=== PATIENT | male | born 2000 | race Caucasian/White ===

== ENCOUNTER 2023-12-28 07:50 | Emergency (ER) | payer MEDICAID, SELFPAY ==
[2023-12-28 08:00] VITALS: BP 143/114; PULSE 74; RESP 18; TEMP 36.4; O2SAT 99; BMI 25.1
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
[2023-12-28 08:50] LABS: Lactate* 1.3 mmol/L (0.5-1.9)
[2023-12-28] MEDS: ONDANSETRON 2 MG/ML inj 4 MG IVP (08:57)
[2023-12-28] MEDS: HALOPERIDOL 5 MG/ML INJ 2.5 MG IV (08:57)
[2023-12-28] MEDS: diazePAM 5 MG/ML inj 10 MG IV ×3 (08:58→12:24)
[2023-12-28 09:02] LABS: Basophils Percent Auto 0.2 % (0.0-3.0); Hematocrit 48.3 % (37.0-53.0); Hemoglobin* 16.3 gm/dL (13.5-17.5); Immature Granulocytes Pct Auto 0.1 %; Lymphocytes Percent Auto 9.2 % (20-44); Mean Corpuscular HGB Conc 34 gm/dL (32-36); Mean Corpuscular Hemoglobin 29 pg (26-34); Mean Corpuscular Volume 84 fL (80-100); Monocytes Percent Auto 7.4 % (0.0-11.0); Neutrophils Percent Auto 83.1 % (42.0-72.0); Platelet Count* 330 K/uL (140-440); RDW Coefficient of Variation % 12.4 % (11.5-15.5); Red Blood Count 5.72 m/uL (4.30-5.90); White Blood Count* 13.37 K/uL (4.50-11.00)
[2023-12-28 09:06] LABS: Slide Review Reflex No
[2023-12-28 09:09] LABS: Chloride* 99 mmol/L (96-114); Potassium* 4.6 mmol/L (3.6-5.1); Sodium* 139 mmol/L (135-149)
[2023-12-28 09:11] LABS: Bilirubin Total* 1.2 mg/dL (0.1-1.5); Creatinine* 0.7 mg/dL (0.5-1.5); Estimated Glomerular Filt Rate 133 ml/min
[2023-12-28 09:12] LABS: Alanine Aminotransferase* 19 U/L (4-50); Alkaline Phosphatase* 58 U/L (40-150); Anion Gap 20 mEq/L (7-15); Aspartate Amino Transferase* 36 U/L (12-35); Blood Urea Nitrogen* 13 mg/dL (5-24); Carbon Dioxide* 20 mmol/L (20-32); Glucose* 116 mg/dL (60-115); Lipase* 49 U/L (23-300); Total Protein* 9.2 g/dL (6.0-8.3)
[2023-12-28 09:13] LABS: Calcium* 10.6 mg/dL (8.4-10.6)
[2023-12-28 09:15] VITALS: BP 135/80; PULSE 75; RESP 16; O2SAT 96
[2023-12-28] MEDS: LACTATED RINGERS 1000 ML IV (09:18)
[2023-12-28 09:49] LABS: Albumin* 6.4 g/dL (3.3-5.0)
[2023-12-28] MEDS: diphenhydrAMINE 50 MG/ML inj 25 MG IVP (10:10)
== END 2023-12-28 12:24 | disposition home or self-care (01) ==
PROVIDERS: Emergency Provider Emergency Medicine; PCP Family Medicine
DX: R11.15 Cyclical vomiting syndrome unrelated to migraine (principal); F41.9 Anxiety disorder, unspecified
CPT/HCPCS: 36415; 80053; 81001; 83605; 83690; 85025; 93005; 96374; 96375; 99284; J1200; J1630; J2405; J3360; J7120

== ENCOUNTER 2024-12-13 05:46 | Emergency (ER) | payer MEDICAID, SELFPAY ==
--- OUTSIDE RECORDS SUMMARY | 2024-12-13 05:49 | XMS_ITS | Encounter Summary ---
Author Organization [facility] Address [address], [place] [address] Care Team Providers Care News Analyst Name Role Phone Needs Pcp, Assignment Primary Care Provider Encounter Details Date Type Department Care Team (Latest Contact Info) Description 08/02/2014 Correspondence None No Primary/Referring, Phy OPTICAL PAW Social History Tobacco Use Types Packs/Day Years Used Date Smoking Tobacco: Never Smokeless Tobacco: Never Comments:smoke free home Alcohol Use Standard Drinks/Week Comments No 0 (1 standard drink = 0.6 oz pur e alcohol) Sex and Gender Information Value Date Recorded Sex Assigned at Not on file Legal Sex Male 7:12 AM CDT Gender Identity Not on file Sexual Orientation Not on file documented as of this encounter Plan of Treatment Not on file documented as of this encounter Visit Diagnoses Not on filedocumented in this encounter Care Teams News Analyst Relationship Specialty Start Date End Date Needs Pcp, [place] [address] PCP - General 03/21/22 documented as of this encounter
--- OUTSIDE RECORDS SUMMARY | 2024-12-13 05:49 | XMS_ITS | Encounter Summary ---
Author Organization [facility] Address [address], [place] [address] Care Team Providers Care Supervisor Residential Name Role Phone Needs Pcp, Assignment Primary Care Provider [phone] Encounter Details Date Type Department Care Team (Late st Contact Info) Description 04/24/2017 Emergency Room External to [facility] DECREASED SENSATION Social History Tobacco Use Types Packs/Day Years [...] on filedocumented in this encounter Care Teams Supervisor Residential Relationship Specialty Start Date End Date Needs Pcp, [place] [address] PCP - General 03/21/22 documented as of this encounter
--- OUTSIDE RECORDS SUMMARY | 2024-12-13 05:49 | XMS_ITS | Clinical Summary ---
Author Organization [facility] Address [address] [place] [address] Care Team Providers Care Letter Sorting Machine Operator Name Role Phone [facility], [facility] Primary Care Provider Allergies Active Allergy Reactions Criticality Noted Date Comments Polymyxin B Throat Swelling/Closing High 08/24/2020 Medications HYDROcodone-megha taminophen 2.5-108mg/5mL oral solution Take 5-10 mL by mouth every 6 hours if needed for Pain. Max acetaminophen dose: 4000mg in 24 hrs. 100 mL 0 4 Active cloNIDine HCL (CATAPRES) 0.3 mg tablet Take 0.3 mg by mouth. 4 Active propranoloL (INDERAL) 20 mg tablet Take 20 mg by mouth. Active ondansetron (ZOFRAN) 8 mg tabletIndicatio ns:Nausea and vomiting, unspecified vomiting type Take 1 Tablet (8 mg) by mouth every 8 hours if needed for Nausea/Vomiting. 30 Tablet 1 5 Active OLANzapine (ZYPREXA) 2.5 mg tablet Take 1 Tablet by mouth 6 times daily. 5 Active LORazepam 1 mg tablet Take 1 mg by mouth 3 times daily if needed. 4 Active Active Problems Problem Noted Date Diagnosed Date Depression, major, single episode, mild 08/20/19 25 MARGO (generalized anxiety disorder) 08/20/2024 Nausea and vomiting 08/20/2024 Immunizations Immunization Administration Dates Next Due DTaP 06/06/2005, 2,05/18/2001,03/11,01/01/2001 HIB-HepB (Comvax) 12/10/2001,03/11/2001,01/02/20 01 Human Papilloma Virus Vaccine 02/02/2015, 013,02/10/2013 Inactivated Polio Vaccine 06/06/2005,,03/11/2001,01/01 MENINGOCOCCAL VACCINE 2 VIAL [id number] (MENVEO) 02/12/2017 MMR 06/06/2005,12/10/2001 Meningococcal Vaccine (Menactra) 03/16/2012 Pneumococcal conj 7-Valent (Prevnar 7) 1 08/07/2004,11/04/2001,05/18/2001,03/11,01/01/2001 Tdap 03/16/2012 Varicella Vaccine 05/04/2007,12/10/2001 Family History Medical History Relation Name Comments Diabetes Maternal Grandfather Anxiety disorder Mother Relation Name Status Comments Father Alive Maternal Grandfather Mother Alive Sister Alive Social History Tobacco Use Types Packs/Day Years Used Date Smoking Tobacco: Never Smokeless Tobacco: Never Alcohol Use Standard Drinks/Week Comments Yes 0 (1 standard drink = 0.6 oz pur e alcohol) rare PHQ-2 Answer Date Recorded PHQ-2 TOTAL SCORE 2 08/20/2024 Sex and Gender Information Value Date Recorded Sex Assigned at Not on file Legal Sex Male 9:37 PM [employer] Gender Identity Not on file Sexual Orientation Not on file Obstetrics History Last Filed Vital Signs Vital Sign Reading Time Taken Comments Blood Pressure 130/76 08/20/2024 11:07 AM [employer] Pulse 77 08/20/2024 11:07 AM [employer] Temperature 36.7 C (98.1 F) 04/24/2017 12:01 PM CDT Respiratory Rate 18 04/24/2017 12:01 PM CDT Oxygen Saturation 97% 08/20/2024 11:07 AM [employer] Inhaled Oxygen Concentration - - Weight 86.6 kg (191 lb) 08/20/2024 11:07 AM [employer] Height 180 cm (5' 10.87) 08/20/2024 11:07 AM CS T Body Mass Index 26.74 08/20/2024 11:07 AM [employer] Plan of Treatment Health Maintenance Due Date Last Done Comments Tetanus booster 03/16/2022 03/16/2012 COVID-19 vaccine series ( season) 2024 06/15/2021, 11/17/2020, 10/24/2020 Influenza Vaccine (Season Ended) 2025 BMI (ht and wt on same day) for age 18+ 08/20/2025 08/20/2024 Depression screening for age 12+ 08/23/2025 08/23/2024, 08/20/2024 Hepatitis B series for 19+ Completed 12/10, 03/11/2001, 01/01/2001 Pneumococcal series for age 6-49 Aged Out 06/06/2005, 11/04/2001, 05/18/2001, Additional history exists No longer eligible based on patient's age to complete this topic Tdap Completed 03/16/2012 HPV series for age 9-26 Completed 02/03/20 15, 06/04/2013, 02/10/2013 HIV for age 15-65 Completed 08/20/2024 Hepatitis C screening for age 18-79 Completed 08/20/2024 Procedures Procedure Name Priority Date/Time Associated Diagnosis Comments SCAN-COLONOSCOPY 09/22/2024 1:00 PM CDT ANTI HIV 1/2 Routine 08/20/2024 11:36 AM [employer] Screening for HIV (human immunodeficiency virus) ANTI HCV Routine 08/20/2024 11:36 AM [employer] Need for hepatitis C screening test from Last 3 Months or Most Recently Relevant to Health Maintenance Results * SCAN-COLONOSCOPY (09/22/2024 1:00 PM CDT) Narrative Procedure Note Jose, Stephen Anders MD - 09/22/2024 12:08 PM CDT [facility] [address] [address] [facility] [facility], [address], [place] [address] Patient Name: Austin Goodman Gender: Male Exam Date: 09/22/2024 Visit Number: [id number] Age: 23 Years Date of : 2000 Attending MD: Stephen Garcia MD Medical Record#: [id number] Procedure: Colonoscopy Indications: Abnormal imaging Abdominal pain Referring MD: Referral Self Primary MD: Nayana Dixon PAC Medications: Admitting Medications: 0.9% Normal Saline at TKO Intra Procedure Medications: Patient received monitored anesthesia care. Complications: No immediate complications Procedure: An examination of the heart and lungs was performed and found to be withinacceptable limits. . The patient was therefore deemed a reasonablecandidate for endoscopy and sedation. The risks and benefits of the procedure were explained to thepatient.After obtaining informed consent, the patient received monitoredanesthesia care and I passed the scope without difficulty via the rectum to the ileum. The appendiceal orificeand ic valve were identified. The scope was retroflexed during theexamination The quality of the prep was excellent (Miralax/Gatorade/2tablets Bisacodyl/Magnesium Citrate). This was a complete examination throughout the entire colon. Findings: Normal finding. Location - ileum. Mild patchy erythema in the rectosigmoid. Suspect prep artifact.However given CT findings of possible colitis and symptoms, I biopsiedrectosigmoid colon with cold forceps for histology. Remainder of the exam is normal. Comments: Retroflexion in the right colon was performed. Impression: Lower abdominal pain impression comments: No definite findings to correlate with imaging.Did not appear like IBD. Preliminary Plan: Repeat colonoscopy at age 45 Pathology Results: A: COLON, SIGMOID AND RECTUM, BIOPSY: 1. Colonic mucosa with nonspecific regenerative change (seecomment) 2. Negative for chronic colitis COMMENTS A. These findings are nonspecific and could reflect a resolving infectiousor ischemic colitis, mild NSAID injury, or potentially a reaction to bowelpreparation. MICROSCOPIC A: Performed Electronically signed by: Finesse Wong MD Interpreted at [facility], [address] [place] [phone] Orders Instruction(s)/Education: Instruction/Education Timeframe Assessment Colon Cancer Prevention R10.30 Additional Comments: Dear Austin, the biopsies I took from your colon show regenerativechanges. This probably from the bowel prep solution. This will go backto normal in a few days. No need for further testing or treatment forthis. _Electronically signed by: Stephen Garcia MD 09/22/2024 cc: Nayana Dixon PAC Stephen Garcia MD OTHER Final Re sult * ANTI HCV (08/20/2024 11:36 AM ASSEMBL[employer]) HEPATITIS C ANTIBODY NON-REACTI VE NON-REACT MARIA ELENA [facility] Comment: HCV antibody was non-reactive. There is no laboratory evidence of HCV infection. In most cases, no further action is required. However, if recent HCV exposure is suspected, a test for HCV RNA (test code 24533) is suggested. For additional information please refer to http://CMP.LY.eCareDiary/faq/MDO63d5 (This link is being provided for informational/ educational purposes only.) Blood BLOOD SPECIMEN / Unknown 08/20/2024 11:36 AM [employer] 08/20/2024 11:37 AM ASSEMBLER [employer] Nayana MCFARLAND SEND OUTS Final Result [facility] [address] [place] [address], [facility] [address] [place] [address] * ANTI HIV 1/2 [25751.0] (08/20/2024 11:36 AM ASSEMBLER [employer]) Pathologist [facility] HIV AG/AB, 4TH GEN NON-REACT MARIA ELENA NON-REACT MARIA ELENA [facility] Comment: HIV-1 antigen and HIV-1/HIV-2 antibodies were not detected. There is no laboratory evidence of HIV infection. PLEASE NOTE: This information has been disclosed to you from records whose confidentiality may be protected by state law. If your state requires such protection, then the state law prohibits you from making any further disclosure of the information without the specific written consent of the person to whom it pertains, or as otherwise permitted by law. A general authorization for the release of medical or other information is NOT sufficient for this purpose. For additional information please refer to http://education.eCareDiary/faq/CSE307 (This link is being provided for informational/ educational purposes only.) The performance of this assay has not been clinically validated in patients less than 2 years old. Blood BLOOD SPECIMEN / Unknown 08/20/2024 11:36 AM [employer] 08/20/2024 11:37 AM [employer] Nayana MCFARLAND SEND OUTS Final Result [facility] [address] [place] [address], [facility] [address] [place] [address] from Last 3 Months or Most Recently Relevant to Health Maintenance Insurance [id number] [id number] [facility] Care Teams Letter Sorting Machine Operator Relationship Specialty Start Date End Date Clinic, [facility] [id number] [place] [address] PCP - General 10/30/16
--- OUTSIDE RECORDS SUMMARY | 2024-12-13 05:49 | XMS_ITS | Encounter Summary ---
Author Organization [facility] Address [address], [place] [address] Care Team Providers Care Dye Operator Name Role Phone Needs Pcp, Assignment Primary Care Provider Encounter Details Date Type Department Care Team (Late st Contact Info) Description 10/30/2016 Emergency Room External to [facility] Social History Tobacco Use Types Packs/Day Years [...] on filedocumented in this encounter Care Teams Dye Operator Relationship Specialty Start Date End Date Needs Pcp, [place] [address] PCP - General 03/21/22 documented as of this encounter
--- OUTSIDE RECORDS SUMMARY | 2024-12-13 05:49 | XMS_ITS | Clinical Summary ---
Author Organization [facility] Address [address] [place] [address] Care Team Providers Care Safety Engineer Pressure Vessels Name Role Phone Jose Fragoso MD Primary Care Provider [phone] Allergies Active Allergy Reactions Criticality Noted Date Comments Polymyxin B Swelling Low 08/24/2020 Medications LORazepam (ATIVAN) 0.5 MG tablet Take 0.5 mg by mouth 2 times daily Active metoclopramide (REGLAN) 10 MG tablet Take 1 tablet (10 mg) by mouth 4 times daily as needed (nausea or vomiting) 15 tablet 03/15/2021 Active benzonatate (TESSALON) 100 MG capsule Take 1 capsule (100 mg) by mouth 3 times daily as needed for cough 10 capsule 06/26/2021 Active hyoscyamine (LEVSIN) 0.125 MG tablet Take 1 tablet (125 mcg) by mouth every 4 hours as needed for cramping 10 tablet 06/26/2021 Active prochlorperazin e (COMPAZINE) 10 MG tablet Take 1 tablet (10 mg) by mouth every 6 hours as needed for nausea or vomiting 20 tablet 01/03/2022 Active ondansetron (ZOFRAN ODT) 4 MG ODT tab Take 1 tablet (4 mg) by mouth every 8 hours as needed for nausea 10 tablet 06/15/2023 Active OLANZapine zydis (ZYPREXA) 5 MG ODT Take 1 tablet (5 mg) by mouth every 8 hours as needed for other (anxiety or severe nausea) 5 tablet 12/26/2023 Active Active Problems Problem Noted Date Diagnosed Date Generalized anxiety disorder 12/26/2023 Cannabis dependence, continuous 12/26/2023 Panic disorder 07/08/2023 Major depression, single episode 07/08/2023 Cannabis-related disorder 07/08/2023 Mental health disorder 04/10/2019 Dehydration in pediatric patient 08/14/2018 Gastroesophageal reflux disease 04/28/2017 Hyperopia 02/01/2009 Overview (12/26/2023): High hyperopia Refractive amblyopia 02/01/2009 Overview (12/26/2023): Refractive Amblyopia OS 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 Overview (12/26/2023): Accomodative Esotropia Social History Tobacco Use Types Packs/Day Years Used Date Smoking Tobacco: Never Smokeless Tobacco: Never Alcohol Use Standard Drinks/Week Comments No 0 (1 standard drink = 0.6 oz pur e alcohol) AUDIT-C Answer Date Recorded Frequency of Alcohol Consumption Never 08/14/2018 Average Number of Drinks Not on file 019 Frequency of Binge Drinking Not on file 07/31 Adolescent Education Answer Date Record ed Getting School Help Needed Not on file 04/15 Sex and Gender Information Value Date Recorded Sex Assigned at Not on file Legal Sex Male 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 Gender Identity Not on file Sexual Orientation Not on file Last Filed Vital Signs Vital Sign Reading Time Taken Comments Blood Pressure 127/76 12/26/2023 6:30 PM CDT Pulse 98 12/26/2023 6:55 PM CDT Temperature 36.1 C (97 F) 12/26/2023 3:49 PM CDT Respiratory Rate 18 12/26/2023 3:49 PM CDT Oxygen Saturation 100% 12/26/2023 6:55 PM CDT Inhaled Oxygen Concentration - - Weight 82.1 kg (181 lb) 12/26/2023 3:49 PM CDT Height 177.8 cm (5' 10) 12/26/2023 3:49 PM CDT Body Mass Index 25.97 12/26/2023 3:49 PM CDT Plan of Treatment Health Maintenance Due Date Last Done Comments ADVANCE CARE PLANNING 2000 ANNUAL REVIEW OF HM ORDERS 2000 DEPRESSION ACTION PLAN 2000 PHQ-9 2000 YEARLY PREVENTIVE VISIT 02/10/2014 02/11/20 13, 07/11/2009, 05/04/2007, Additional history exists HIV SCREENING 11/11/2015 HEPATITIS C SCREENING 2018 DTAP/TDAP/TD VACCINE (7 - Td or Tdap) 03/16/2022 03/16/2012, 06/06/2005, 03/02/2002, Additional history exists COVID-19 VACCINE ( season) 2024 INFLUENZA VACCINE (Season Ended) 2025 04/08/2016, 04/13/2015, 03/16/2012, Additional history exists ZOSTER VACCINE (1 of 2) 2050 HEPATITIS B VACCINE Completed 12/10/2001, 03/11/2001, 01/01/2001 PNEUMOCOCCAL VACCINE: PEDIATRICS (0 to 5 YEARS) AND AT-RISK PATIENTS (6 to 49 YEARS) Aged Out 06/06/2005, 11/04/2001, 05/18/2001, Additional history exists No longer eligible based on patient's age to complete this topic HPV VACCINE Completed 02/02/2015, 11/2012, 02/10/2013 MENINGITIS VACCINE Completed 02/12/2017, 03/16/2012 MENINGITIS B VACCINE Aged Out No long er eligible based on patient's age to complete this topic [id number] [place] [id number] [facility] none (Work) [id number] Advance Directives For more information, please contact: [phone] * Full Code (Latest Code Status on File) Date Activated Date Inactivated Comments 04/10/2019 2:53 PM 04/11/2019 7:15 PM Question Answer Comments Code status determined by: Discussion with savannah nt/legal decision maker Care Teams Safety Engineer Pressure Vessels Relationship Specialty Start Date End Date Jose Fragoso MD [facility] [address] [place] [address] PCP - General Family Medicine 08/26/20
--- OUTSIDE RECORDS SUMMARY | 2024-12-13 05:49 | XMS_ITS | Clinical Summary ---
Author Organization [facility] Address [address] [place] [address] Care Team Providers Care Student Services Dean Name Role Phone Needs Pcp, Assignment Primary Care Provider [phone] Source Comments You are receiving this document as you are listed as the primary care provider,follow-up provider, or the patient has been referred to you for consultation.This is in compliance with the Medicare and[facility] EHR Incentive Program,which states Providers who transition their patient to another setting of careor provider of care or refers their patient to another provider of care shouldprovide summary care record for each transition of care or referral. [facility] Allergies Active Allergy Reactions Criticality Noted Date Comments Polymyxin B Swelling Low 08/24/2020 Medications raNITIdine (ZANTAC) 150 MG tabletIndications: Chronic cough,Gastroesopha geal reflux disease, esophagitis presence not specified Take 1 Tab by mouth two times a day. 60 Tab 1 04/28/20 17 Active loratadine (CLARITIN) 10 MG tablet TAKE ONE TABLET BY MOUTH EVERY DAY 90 Tab 3 12/10/19 18 Active Additional Information Patient not taking.Reported on 11/02/2023 omeprazole (PRILOSEC) 20 MG capsuleIndications :Nausea and vomiting, intractability of vomiting not specified, unspecified vomiting type Take 1 Capsule by mouth daily. Take 1 hour before a meal. 30 Capsule 08/13/19 19 Active propranolol (INDERAL) 20 MG tablet Take 1 Tablet (20 mg) by mouth every morning. 10/07/19 24 Active cloNIDine (CATAPRES) 0.3 MG tablet Take 1 Tablet (0.3 mg) by mouth daily at bedtime. 10/09/19 24 Active ondansetron (ZOFRAN-ODT) 4 MG disintegrating tablet Take 1 Tablet (4 mg) by mouth. 06/15/20 23 Active LORazepam (ATIVAN) 1 MG tablet Take 1 Tablet (1 mg) by mouth three times a day as needed. 12/28/19 24 Active venlafaxine (EFFEXOR) 75 MG tablet Take 1 Tablet (75 mg) by mouth three times a day. 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 07 008 Overview (02/19/2017): Strabismic Amblyopia OS Immunizations Immunization Administration Dates Next Due 4vHPV (Gardasil) 02/02/2015,06/04/2013, 3 DTaP 06/06/2005, 2,05/18/2001,2000,01/01/2001 Flu Vac (3+ yrs) 06/15/2007,05/04/2007 H1n1 Laiv Medimmune 2-49 Yr (Intranasal) 07/11/2009,05/24/2009 Hib/HBV 12/10/2001,03/11/2001,01/01/2001 IPV (Polio) 06/06/2005, 1,03/11/2001,2000 Influenza IIV4 (Quadrivalent ) 0.5mL (16099) 04/08/2016 Influenza LAIV (Nasal, 2-49 yrs) 04/13/2015 Influenza LAIV3 2-49 years (Flumist) 03/16/2012 Influenza Vaccine, Nasal ([facility]) 04/11/2009 MCV4 (Menactra) 03/16/2012 MCV4 Menveo 2m.+ (two vial) 02/12/2017 MMR 06/06/2005,12/10/2001 Pneumococcal 7, PED 06/06/2005, 2,05/18/2001,2000,01/01/2001 Tdap 03/16/2012 Varicella 05/04/2007,12/10/2001 Family History Medical History Relation Name Comments Coronary Artery Disease Maternal Grandfather Hyperlipidemia Maternal Grandfather Hypertension Maternal Grandfather Liver Disease Maternal Grandfather Cerebrovascular Disease Paternal Grandfather Hypertension Paternal Grandmother Cataract Negative Family History Glaucoma Negative Family History Macular Degeneration Negative Family History Retinal Detachment Negative Family History Relation Name Status Comments Father Alive Mother Alive Maternal Grandfather Alive Maternal Grandmother Alive Paternal Grandfather Alive Paternal Grandmother Alive Sister Alive Social History Tobacco Use Types Packs/Day Years Used Date Smoking Tobacco: Never Smokeless Tobacco: Never Comments:smoke free home Alcohol Use Standard Drinks/Week Comments Never 0 (1 standard drink = 0.6 oz pur e alcohol) AUDIT-C Answer Date Recorded Frequency of Alcohol Consumption Never 10/24/2018 Average Number of Drinks Not on file 019 Frequency of Binge Drinking Not on file 09/29 Sex and Gender Information Value Date Recorded Sex Assigned at Not on file Legal Sex Male 7:12 AM CDT Gender Identity Not on file Sexual Orientation Not on file Last Filed Vital Signs Vital Sign Reading Time Taken Comments Blood Pressure 130/92 12/31/2023 5:42 PM CDT Pulse 113 12/31/2023 6:13 PM CDT Temperature 37.6 C (99.6 F) 12/31/2023 5:42 PM CDT Respiratory Rate 12 12/31/2023 5:42 PM CDT Oxygen Saturation 96% 12/31/2023 5:42 PM CDT Inhaled Oxygen Concentration - - Weight 88.6 kg (195 lb 6.4 oz) 09/01/2018 12:58 PM DRIER TAKE OFF TENDER Height 179.1 cm (5' 10.5) 09/01/2018 12:[address] Body Mass Index 27.64 09/01/2018 12:58 PM DRIER TAKE OFF TENDER Plan of Treatment Health Maintenance Due Date Last Done Comments Hep C Screening (Preventive Services) 2000 HIV Screening (Preventive Services) 2016 Adult Preventive Visit 2018 8, 02/12/2017, 02/02/2015, Additional history exists DTaP/Tdap/Td Vaccine (7 - Tdap) 03/16/2022 03/16/2012, 06/06/2005, 03/02/2002, Additional history exists COVID-19 Vaccine ( season) 2024 06/15/2021, 11/17/2020, 10/24/2020 Influenza Vaccine (Season Ended) 2025 04/08/2016, 04/13/2015, 03/16/2012, Additional history exists Zoster/Shingles Vaccine (1 of 2) 2050 HepB Vaccine Completed 12/10/2001, 02/28, 01/01/2001 Hib Vaccine Completed 12/10/2001, 02/28, 01/01/2001 IPV (Polio) Vaccine Completed 06/06/2005, 05/18/2001, 03/11/2001, Additional history exists Pneumococcal Vaccine Aged Out 06/06/2005, 11/04/2001, 05/18/2001, Additional history exists No longer eligible based on patient's age to complete this topic Varicella Vaccine Completed 05/04/2007, 12/10/2001 HPV Vaccine Completed 02/02/2015, 12/0 11/2012, 02/10/2013 MCV4 Vaccine Completed 02/12/2017, 03/16/2012 HepA Vaccine Aged Out No longer eligi ble based on patient's age to complete this topic Meningococcal B Vaccine Aged Out No l onger eligible based on patient's age to complete this topic Insurance CARE PMAP CARE PMAP Care Teams Student Services Dean Relationship Specialty Start Date End Date Needs Pcp, [place] [address] PCP - General 03/21/22
--- OUTSIDE RECORDS SUMMARY | 2024-12-13 05:49 | XMS_ITS | Encounter Summary ---
[facility] Address [address] [place] [address] Care Team Providers Care Family Preservation Officer Name Role Phone Needs Pcp, Assignment Primary Care Provider Encounter Details Date Type Department Care Team (Late st Contact Info) Description 2000 Office Visit [facility] [address] [place] [address] Andres Jaquez MD [address] [place] [id number] Social History Tobacco Use Types Packs/Day Years Used Date Smoking Tobacco: Never Assessed Sex and Gender Information Value Date Recorded Sex Assigned at Not on file Legal Sex Male 7:12 AM CDT Gender Identity Not on file Sexual Orientation Not on file documented as of this encounter Progress Notes * Andres Jaquez - 2000 12:00 AM CDTS: A 3-week-old infant has been fussy and had projectile vomiting last night. He has been breast feeding well, bowel movements have been normal. They are somewhat loose. He started yesterday morning vomiting a whole feeding and again yesterday evening with the whole feeding. Both of these were in a projectile manner. Otherwise, more than half of his feedings have stayed down. He has had a rash in the diaper area. O: Healthy appearing , no evidence of weight loss. Exam of head and neck, heart, lungs, abdomen are entirely unremarkable. Skin clear. A: Possible viral illness with vomiting, doubt early pyloric stenosis. P: Described symptoms to watch for for possible early pyloric stenosis which would include progressive projectile vomiting and vomiting after each feeding. This does not seem to be the case thus far and the possibility is unlikely. Reassured, observe and recheck p.r.n. if not symptoms not resolved in several days. IN SUMMARY: Possible viral illness. documented in this encounter Plan of Treatment Not on file documented as of this encounter Visit Diagnoses Not on filedocumented in this encounter Care Teams Family Preservation Officer Relationship Specialty Start Date End Date Needs Pcp, [place] [address] PCP - General 03/21/22 documented as of this encounter
--- OUTSIDE RECORDS SUMMARY | 2024-12-13 05:50 | XMS_ITS | Encounter Summary ---
[facility] Organization [facility] Address [address] [place] [address] Care Team Providers Care Obstetrics Gynecology Physician Name Role Phone Needs Pcp, Assignment Primary Care Provider [phone] Encounter Details Date Type Department Care Team (Late st Contact Info) Description 01/01/2001 Office Visit [facility] [address] [place], [place] [id number] Bc Lassiter MD [facility] [address] [place], [place] [phone] Social History Tobacco Use Types Packs/Day Years Used Date Smoking Tobacco: Never Assessed Sex and Gender Information Value Date Recorded Sex Assigned at Not on file Legal Sex Male 7:12 AM CDT Gender Identity Not on file Sexual Orientation Not on file documented as of this encounter Progress Notes * Bc Lassiter - 01/01/2001 12:00 AM CDTS: Physical. Austin is doing fairly well. He feeds about two hours during the day. He's quite efficient. He eats fast. He goes maybe as long as the three hours to four hours at night. He does spit up. He gags. He `s hard to burp. Stools are once a day. Rather large, loose. No other special concerns or complaints. Passes his PDQ. O: Height: 22 , 57.8 circulation motion sensation., 50th percentile. Weight: 11 pounds 12 ounces, 50th percentile. OFC: 39 cms.,75th percentile. HEENT: normal . Eyes: straight. Neck: normal. Chest: clear. Heart: no murmur. Abdomen: normal. Genitalia: normal. Extremities: normal. Skin: normal. Neurologic: normal. A: Normal physical. P: Gets a DtaP, IPV, HIB, HEB, pneumococcal vaccine.Come back at four months of age or prn. IN SUMMARY: NORMAL PHYSICAL. cc: documented in this encounter Plan of Treatment Not on file documented as of this encounter Visit Diagnoses Not on filedocumented in this encounter Care Teams Obstetrics Gynecology Physician Relationship Specialty Start Date End Date Needs Pcp, [place] [address] PCP - General 03/21/22 documented as of this encounter
--- OUTSIDE RECORDS SUMMARY | 2024-12-13 05:50 | XMS_ITS | Encounter Summary ---
Author Organization [facility] Address [address] [place] [address] Care Team Providers Care Test Grader Name Role Phone Needs Pcp, Assignment Primary Care Provider [phone] Encounter Details Date Type Department Care Team (Late st Contact Info) Description 04/10/2019 Outside Hospital External to [facility] HISTORY AND PHYSICAL Social History Tobacco Use Types Packs/Day Years [...] on filedocumented in this encounter Care Teams Test Grader Relationship Specialty Start Date [place] [address] PCP - General 03/21/22 documented as of this encounter
[2024-12-13 06:03] VITALS: BP 143/87; PULSE 69; RESP 16; TEMP 37.1; O2SAT 97; BMI 25.1
--- NOTE | 2024-12-13 06:12 | ED.ANXIETY ---
HPI - Anxiety General Time Seen by Provider: 06:12 Date Seen: 12/13/24 Chief Complaint: Anxiety Stated Complaint: Panic attacks 12/11/24 and vomiting Time Seen by Provider: 12/13/24 06:12 Source: patient Mode of arrival: ambulatory Limitations: no limitations History of Present Illness HPI narrative: 24-year-old male who comes in today with abdominal pain and anxiety. Reports acute anxiety this started on Friday, took Xanax with minimal improvement. Has been vomiting over the last 2 days as well. Denies chest pain, diarrhea, abdominal pain. Does have a history of anxiety. No diarrhea, reports left-sided abdominal pain. No fevers, chills, urinary symptoms. Reports cramping of his entire body. Related Data Home Medications ?Medication ?Instructions ?Recorded ?Confirmed clonidine HCl 0.2 mg tablet 0.2 mg PO QPM 12/28/23 12/13/24 Held on 12/13/24. Instructions: insurance reason venlafaxine 37.5 mg 37.5 mg PO DAILY 12/28/23 12/13/24 capsule,extended release 24 hr alprazolam 1 mg tablet mg PO 12/13/24 Previous Rx's ?Medication ?Instructions ?Recorded omeprazole 20 mg capsule,delayed 20 mg PO QDAY #90 caps 01/27/22 release lorazepam 0.5 mg tablet 0.5 mg PO TID PRN anxiety #30 tabs 05/31/22 Held on 12/13/24. Instructions: insurance reason propranolol 60 mg capsule,24 60 mg PO QHS #30 caps 05/31/22 hr,extended release lorazepam 1 mg tablet 1 mg PO TID PRN #14 tabs 12/28/23 ondansetron HCl 4 mg tablet 4 mg PO Q8H #14 tabs 12/28/23 Allergies Allergy/AdvReac Type Severity Reaction Status Date / Time polymyxin B AdvReac Mild Verified 12/28/23 09:31 [facility] Medical History (Updated 12/13/24 @ 07:20 by Tonny Zhang MD) Anxiety ?F41.9 - Anxiety disorder, unspecified (ICD-10) Social History Smoking Status: Never smoker Do you use any of these nicotine containing products: None How often do you have a drink containing alcohol: never AUDIT-C Alcohol total score: 0 Non-prescribed substance use: marijuana (any form) Exam Narrative: Exam Narrative: General: Well-developed and well-nourished, no acute distress Head: Atraumatic and normocephalic Eyes: Pupils are equal reactive, extraocular motions intact, conjunctiva clear ENT: External nose and ears are normal, posterior pharynx without erythema or exudate Neck: No midline cervical tenderness, full spontaneous range of motion the neck, trachea midline, no adenopathy Heart: Regular rate and rhythm no murmurs or thrills Lungs: Clear to auscultation bilaterally without wheezes or crackles Abdomen: Soft, mild diffuse tenderness, nondistended with active bowel sounds Musculoskeletal: No tenderness, deformity, or edema Neurologic: Awake, alert, and oriented x3, no gross focal neurologic deficits, cranial nerves intact as tested Psych: Mood and affect are appropriate Skin: No rashes Const: Vital Signs, click to edit/add: Vital Signs - 24 hr 12/13/24 06:03 Temperature 98.8 F Pulse Rate [Pulse Oximeter] 69 Respiratory Rate 16 Blood Pressure [Ri ght Upper Arm] 143/87 H Pulse Oximetry 97 Oxygen Delivery Me thod Room Air Course Course ED Course: Reviewed prior GI note from July 2024 when patient was seen with abdominal pain and nausea vomiting. Patient presents today with generalized abdominal pain, vomiting, and panic attack 2 days ago. Says he gets similar symptoms to this when he gets anxiety, attributes current episode to starting after he ate fast food today's in row. Denies chest pain, shortness of breath, urinary symptoms, diarrhea. On exam here patient's slightly stable, awake alert, somewhat tremulous. Mild diffuse abdominal tenderness. Labs, fluids, Benadryl and Compazine are ordered. Reevaluation(s) Time of Reevaluation #1: 07:21 Reevaluation #1: Labs independently interpreted by me with normal CBC, mild anion gap stenosis which likely is related dehydration, normal patent panel in normal lipase. Patient is still complaining of abdominal pain alone nausea is improved. Review of chart shows patient has received droperidol with good results in the past and this will be ordered. Anticipate sign out to oncoming provider and likely discharge. Vital Signs Vital signs: Initial Vital Signs Temperature 98.8 F 12/13/24 06:03 Temperature Source Temporal Artery Scan 12/13/24 06:03 Pulse Rate 69 12/13/24 06:03 Respiratory Rate 16 12/13/24 06:03 Blood Pressure 143/87 H 12/13/24 06:03 Blood Pressure Mean 105 12/13/24 06:03 Blood Pressure Position Semi-Fowlers 12/13/24 06:03 Pulse Oximetry 97 12/13/24 06:03 Oxygen Delivery Method Room Air 12/13/24 06:03 Vital Signs Temperature 98.8 F 12/13/24 06:03 Pulse Rate 69 12/13/24 06:03 Respiratory Rate 16 12/13/24 06:03 Blood Pressure 143/87 H 12/13/24 06:03 Pulse Oximetry 97 12/13/24 06:03 Oxygen Delivery Method Room Air 12/13/24 06:03 Temperature 98.8 F 12/13/24 06:03 Pulse Rate 69 12/13/24 06:03 Respiratory Rate 16 12/13/24 06:03 Blood Pressure 143/87 H 12/13/24 06:03 Pulse Oximetry 97 12/13/24 06:03 Oxygen Delivery Method Room Air 12/13/24 06:03 Medications Administered Medications: Generic Name Dose Route Start Last Admin Trade Name Freq PRN Reason Stop Dose Admin Sodium Chloride 1,000 mls @ 1,000 mls/hr 12/13/24 06:30 12/13/24 06:35 0.9 % Sodium Chloride 1000 Ml IV 12/13/24 07:29 1,000 mls/hr .Q1H CRISTINA Administration Discontinued Medications Generic Name Dose Route Start Last Admin Trade Name Freq PRN Reason Stop Dose Admin Diphenhydramine HCl 25 mg 12/13/24 06:26 12/13/24 06:35 Diphenhydramine 50 Mg/Ml Inj IVP 12/13/24 06:27 25 mg ONCE ONE Administration Famotidine 20 mg 12/13/24 06:27 12/13/24 06:35 Famotidine 10 Mg/Ml Inj IVP 12/13/24 06:28 20 mg ONCE ONE Administration Ketorolac Tromethamine 15 mg 12/13/24 07:02 12/13/24 07:04 Ketorolac 15 Mg/Ml Inj IVP 12/13/24 07:03 15 mg ONCE ONE Administration Prochlorperazine 10 mg 12/13/24 06:26 12/13/24 06:35 Prochlorperazine 5 Mg/Ml Vial IV 12/13/24 06:27 10 mg ONCE ONE Administration MDM - Anxiety Lab Data Labs: Lab Results 12/13/24 Range/Units 06:44 WBC 8.54 (4.50-11.00) K/uL RBC 5.33 (4.30-5.90) m/uL Hgb 15.4 (13.5-17.5) gm/dL Hct 45.0 (37.0-53.0) % MCV 84 (80-100) fL MCH 29 (26-34) pg MCHC 34 (32-36) gm/dL RDW Coeff of Liv 12.3 (11.5-15.5) % Plt Count 288 (140-440) K/uL Neut % (Auto) 74.9 H (42.0-72.0) % Lymph % (Auto) 17.7 L (20-44) % Hanson % (Auto) 6.9 (0.0-11.0) % Eos % (Auto) 0.2 (0.0-7.0) % Baso % (Auto) 0.2 (0.0-3.0) % Neut # (Auto) 6.40 (1.7-7.0) K/uL Lymph # (Auto) 1.50 (0.90-2.90) K/uL Hanson # (Auto) 0.60 (0.00-0.90) K/UL Eos # (Auto) 0.02 (0.00-0.50) K/uL Baso # (Auto) 0.02 (0.00-0.30) K/uL Abs Immat Gran (auto) 0.01 (0.00-0.30) K/uL Imm/Tot Granulo (auto) 0.1 % Sodium 139 (135-149) mmol/L Potassium 4.0 (3.6-5.1) mmol/L Chloride 100 (96-114) mmol/L Carbon Dioxide 19 L (20-32) mmol/L Anion Gap 20 H (7-15) mEq/L BUN 14 (5-24) mg/dL Creatinine 0.7 (0.5-1.5) mg/dL Estimated Creat Clear 173.31 Estimated GFR 132 ml/min Glucose 116 H (60-115) mg/dL Calcium 10.3 (8.4-10.6) mg/dL Magnesium 1.5 (1.5-2.6) mg/dL Total Bilirubin 1.0 (0.1-1.5) mg/dL Direct Bilirubin 0.4 (0.0-0.5) mg/dL AST 34 (12-35) U/L ALT 18 (4-50) U/L Alkaline Phosphatase 50 (40-150) U/L Total Protein 8.2 (6.0-8.3) g/dL Albumin 5.2 H (3.3-5.0) g/dL Lipase 34 (23-300) U/L Discharge Plan Discharge Clinical Impression: Abdominal pain, Anxiety, Nausea and vomiting Patient Disposition: Home, Self-Care Condition: Stable Instructions: Acute Nausea and Vomiting (DC), Acute Abdominal Pain (DC), Anxiety (ED) Additional Instructions: Follow-up with your primary care provider for further evaluation and treatment. Also contact your liquor blender Activity Level: Activity as Tolerated Discharge Diet: Regular Prescriptions: No Action propranolol 60 mg capsule,extended release 24 hr 60 mg PO QHS Qty: 30 2RF lorazepam 0.5 mg tablet 0.5 mg PO TID PRN (Reason: anxiety) Qty: 30 1RF venlafaxine 37.5 mg capsule,extended release 24hr 37.5 mg PO DAILY clonidine HCl 0.2 mg tablet 0.2 mg PO QPM lorazepam 1 mg tablet 1 mg PO TID PRNQty: 14 0RF ondansetron HCl 4 mg tablet 4 mg PO Q8H Qty: 14 0RF alprazolam 1 mg tablet PO omeprazole 20 mg capsule,delayed release(DR/EC) 20 mg PO QDAY Qty: 90 0RF Follow Up/Referrals: Jose Fragoso MD [Primary Care Provider, Family Practice] Stand Alone Forms: [email or web address] Info Instructions
[2024-12-13] MEDS: 0.9 % SODIUM CHLORIDE 1000 ml 1,000 ML IV (06:35)
[2024-12-13] MEDS: FAMOTIDINE 10 MG/ML inj 20 MG IVP (06:35)
[2024-12-13] MEDS: PROCHLORPERAZINE 5 MG/ML VIAL 10 MG IV (06:35)
[2024-12-13] MEDS: diphenhydrAMINE 50 MG/ML inj 25 MG IVP (06:35)
[2024-12-13 06:52] LABS: Basophils Absolute Auto 0.02 K/uL (0.00-0.30); Basophils Percent Auto 0.2 % (0.0-3.0); Eosinophils Absolute Auto 0.02 K/uL (0.00-0.50); Eosinophils Percent Auto 0.2 % (0.0-7.0); Hemoglobin* 15.4 gm/dL (13.5-17.5); Immature Granulocytes Abs Auto 0.01 K/uL (0.00-0.30); Immature Granulocytes Pct Auto 0.1 %; Lymphocytes Percent Auto 17.7 % (20-44); Mean Corpuscular HGB Conc 34 gm/dL (32-36); Mean Corpuscular Hemoglobin 29 pg (26-34); Mean Corpuscular Volume 84 fL (80-100); Monocytes Percent Auto 6.9 % (0.0-11.0); Neutrophils Percent Auto 74.9 % (42.0-72.0); Platelet Count* 288 K/uL (140-440); RDW Coefficient of Variation % 12.3 % (11.5-15.5); Red Blood Count 5.33 m/uL (4.30-5.90); White Blood Count* 8.54 K/uL (4.50-11.00)
[2024-12-13 06:59] LABS: Slide Review Reflex No
[2024-12-13] MEDS: KETOROLAC 15 MG/ML inj IVP (07:04)
[2024-12-13 07:09] LABS: Albumin* 5.2 g/dL (3.3-5.0); Chloride* 100 mmol/L (96-114); Sodium* 139 mmol/L (135-149)
[2024-12-13 07:12] LABS: Alanine Aminotransferase* 18 U/L (4-50); Alkaline Phosphatase* 50 U/L (40-150); Anion Gap 20 mEq/L (7-15); Aspartate Amino Transferase* 34 U/L (12-35); Bilirubin Direct* 0.4 mg/dL (0.0-0.5); Blood Urea Nitrogen* 14 mg/dL (5-24); Calcium* 10.3 mg/dL (8.4-10.6); Carbon Dioxide* 19 mmol/L (20-32); Creatinine* 0.7 mg/dL (0.5-1.5); Est. Creatinine Clearance* 173.31; Estimated Glomerular Filt Rate 132 ml/min; Glucose* 116 mg/dL (60-115); Lipase* 34 U/L (23-300); Total Protein* 8.2 g/dL (6.0-8.3)
[2024-12-13 07:13] LABS: Magnesium* 1.5 mg/dL (1.5-2.6)
== END 2024-12-13 07:46 | disposition home or self-care (01) ==
LOC: ED 07:43
PROVIDERS: Emergency Provider Family Medicine; PCP Family Medicine
DX: R11.2 Nausea with vomiting, unspecified (principal); R10.9 Unspecified abdominal pain; F41.9 Anxiety disorder, unspecified
CPT/HCPCS: 36415; 80048; 80076; 83690; 83735; 85025; 96374; 96375; 99283; 99284; J0780; J1200; J1308; J1885; J7030

== ENCOUNTER 2024-12-17 17:07 | Emergency (ER) | payer MEDICAID, SELFPAY ==
--- OUTSIDE RECORDS SUMMARY | 2024-09-22 08:01 | XMS_ITS | Continuity of Care Document ---
Author Organization [facility] Address [address] [address] [place] [address] Phone Care Team Providers Care Cartridge Feeder Name Role Phone Scooby Buck CRNA Unavailable Unavailable Allergies, Adverse Reactions, Alerts Substance Reaction Status Criticality EYE DROP ADMINISTRATION AID Swelling Active No Information Medications Medication Instructions Dosage Effective Dates (start - stop) Status Comments clonidine HCl 0.3 mg tablet take 1 tablet by oral route every day 0.3 MG - Active propranolol 20 mg tablet take 1 tablet by oral route every day 20 MG - Active dicyclomine 10 mg capsule take 1 capsule by oral route up to 3 times every day as needed - Active Procedures Procedure Date Colonoscopy Flex; W/bx 1/mx Level Iv-surg Path Gross/micro 25 Offic/outpt E&m New Mod-hi Routine Serum Collection Advance Directives Directive Yes / No Effective Date File Name No Information Encounters Encounter Description Practice Location Reason(s) For Visit Diagnoses Date Provider Providers Copied on Encounter [facility], [address] [address], [place], [id number], [place] tel:[phone] [facility] No Information 5 Heber Almodovar. [address] [facility], [place], [place], [id number] , [place]. tel: [phone] Referring Provider: Stephen Garcia MD, [address] [facility] [address], [place], [address] . tel:[phone] [facility], [address] [address], [place], [place], [id number], [place] tel:[phone] [facility] GI Symptoms or Concerns (chief complaint) Lower abdominal pain, unspecifiedAbnormal findings on diagnostic imaging of other parts of digestive tractLower abdominal pain, unspecified Aug- Jose Mitchell. [address] [place] [address], [place], [id number] , [place]. tel: [phone] Referring Provider: Referral Self, USE FOR SELF REFERRALS. Offic/outpt E&m [facility], [address] [address], [place], [place], [id number], [place] tel:[phone] [facility] GI Symptoms or Concerns (chief complaint) Lower abdominal painIrregular bowel habitsNausea and vomiting, unspecified vomiting type 5 Jessika Ace. [address] [place] [address], [place], [id number] , [place]. tel: [phone] Referring Provider: Nayana Baer, [address] [place], [address]. tel:[phone] [facility], [address] [address], [place], [place], [address], [place] tel:[phone] [facility] No Information 5 Rigo Sol. [facility] [address], [place], [place], [id number] , [place]. tel: [phone] [facility], [address] [address], [place], [place], [address], [place] tel:[phone] [facility] No Information 1 Gregory Alex. [address] [facility], [facility] [address], [place], [place], [id number] , [place]. tel:[phone] Family History Family Member Type Diagnosis Age At Onset Mother Problem GERD Problem Family history of diabetes Father Problem appendix rupture Father Problem GERD Immunizations Vaccine Date Status Comments SARS-COV-2 (COVID-19) vaccin e, mRNA, spike protein, LNP, preservative free, 30 mcg/0.3mL dose administered Note: [facility] bi-direct ional interface ; Source: Other Registry SARS-COV-2 (COVID-19) vaccin e, mRNA, spike protein, LNP, preservative free, 30 mcg/0.3mL dose administered Note: [facility] bi-direct ional interface ; Source: Other Registry SARS-COV-2 (COVID-19) vaccin e, mRNA, spike protein, LNP, preservative free, 30 mcg/0.3mL dose administered Note: [facility] bi-direct ional interface ; Source: Other Registry meningococcal oligosaccharid e (groups A, C, Y and W-135) diphtheria toxoid conjugate vaccine (MCV4O) administered Note: [facility] bi-direct ional interface ; Source: Other Registry Afluria Qd administered Note: [facility] bi-directional interface ; Source: Other Registry Influenza, live, quadrivalen t, intranasal administered Note: [facility] bi-direct ional interface ; Source: Other Registry influenza, live, intranasal, quadrivalent administered Note: [facility] bi-direct ional interface ; Source: Other Registry human papilloma virus vaccin e, quadrivalent administered Note: [facility] bi-direct ional interface ; Source: Other Registry human papilloma virus vaccin e, quadrivalent administered Note: [facility] bi-direct ional interface ; Source: Other Registry human papilloma virus vaccin e, quadrivalent administered Note: [facility] bi-direct ional interface ; Source: Other Registry Influenza, live, trivalent, intranasal administered Note: [facility] bi-direct ional interface ; Source: Other Registry tetanus toxoid, reduced diphtheria toxoid, and acellular pertussis vaccine, adsorbed administered Note: [facility] b i-directional interface ; Source: Other Registry influenza virus vaccine, janet e, attenuated, for intranasal use administered Note: [facility] C bi- directional interface ; Source: Other Registry meningococcal polysaccharide (groups A, C, Y and W-135) diphtheria toxoid conjugate vaccine (MCV4P) administered Note: [facility] bi-direct ional interface ; Source: Other Registry Novel [id number], all formulations administered Note: [facility] bi-direct ional interface ; Source: Other Registry Novel [id number], all formulations administered Note: [facility] bi-direct ional interface ; Source: Other Registry Influenza, split virus, trivalent, injectable, contains preservative administered Note: [facility] bi-direct ional interface ; Source: Other Registry Influenza, seasonal, injectable administe red Note: [facility] bi- directional interface ; Source: Other Registry varicella virus vaccine administered Note : [facility] bi-directional interface ; Source: Other Registry diphtheria, tetanus toxoids and acellular pertussis vaccine administered Note: [facility] b i-directional interface ; Source: Other Registry poliovirus vaccine, inactivated administe red Note: [facility] bi- directional interface ; Source: Other Registry Pneumovax administered Note: [facility] bi-d irectional interface ; Source: Other Registry measles, mumps and rubella v irus vaccine administered Note: [facility] bi-direct ional interface ; Source: Other Registry diphtheria, tetanus toxoids and acellular pertussis vaccine administered Note: [facility] b i-directional interface ; Source: Other Registry measles, mumps and rubella v irus vaccine administered Note: [facility] bi-direct ional interface ; Source: Other Registry Haemophilus influenzae type b conjugate and Hepatitis B vaccine administered Note: [facility] bi- directional interface ; Source: Other Registry varicella virus vaccine administered Note : [facility] bi-directional interface ; Source: Other Registry Pneumovax administered Note: [facility] bi-d irectional interface ; Source: Other Registry diphtheria, tetanus toxoids and acellular pertussis vaccine administered Note: [facility] b i-directional interface ; Source: Other Registry poliovirus vaccine, inactivated administe red Note: [facility] bi- directional interface ; Source: Other Registry Pneumovax administered Note: [facility] bi-d irectional interface ; Source: Other Registry diphtheria, tetanus toxoids and acellular pertussis vaccine administered Note: [facility] b i-directional interface ; Source: Other Registry Haemophilus influenzae type b conjugate and Hepatitis B vaccine administered Note: [facility] bi- directional interface ; Source: Other Registry Pneumovax administered Note: [facility] bi-d irectional interface ; Source: Other Registry poliovirus vaccine, inactivated administe red Note: [facility] bi- directional interface ; Source: Other Registry Haemophilus influenzae type b conjugate and Hepatitis B vaccine administered Note: [facility] bi- directional interface ; Source: Other Registry poliovirus vaccine, inactivated administe red Note: [facility] bi- directional interface ; Source: Other Registry Pneumovax administered Note: [facility] bi-d irectional interface ; Source: Other Registry diphtheria, tetanus toxoids and acellular pertussis vaccine administered Note: [facility] b i-directional interface ; Source: Other Registry Payers Payer name Insurance type Covered green party ID Marizol becker(s) [facility] [id number] Social History Type Description Quantity Date Captured Comments Sex Male Smoking Status No Information Chief Complaint And Reason For Visit No Information Reason For Referral Reason For Referral No Information Plan Of Treatment Date Type Action Status Referral Ordered: Xray Abdomen Complete Appointment date/timeframe: 09/09/2024 ordered Referral Ordered: Colonoscopy Appointment date/timeframe: 09/22/2024 ordered History Of Present Illness Encounter Date Complaint History Of Prese nt Illness GI Symptoms or Concerns GI Symptoms or Concerns [place] i s a 23-year-old male with no significant history presenting for evaluation of lower abdominal pain and nausea with vomiting.Per PCP note on 08/20, patient was seen at [place] emergency room 08/01 and 08/03 for possible colitis via CT he was put on Augmentin, which improved but did not resolve his symptoms. Reportedly has a history of this in the past along with chronic nausea and vomiting, and in the past felt is related to anxiety. History of constipation. CT of the abdomen and pelvis on 08/02 demonstrated bowel findings compatible with gastrointestinal illness and colitis with contracted small bowel without focal wall thickening, liquid stool in proximal colon, and contracted left hemicolon with greater than expected wall thickening. Labs on 08/20 demonstrated unremarkable hepatitis C and HIV testing, TSH, BMP, and CBC.Today, patient reports that over the last couple years, he will have 2-3 episodes per year of abdominal pain with a change in bowel habits and associated nausea and vomiting. These episodes can last anywhere from a few days to a few weeks, and then subsequently resolve. He did visit the ED in [place] earlier this month for the symptoms, and was given Augmentin which did help. He was also given dicyclomine but he was not sure if that helped as he was taking other medications at the time. Patient feels lower abdominal pain around his waistline and is more prominent on the left side. He feels that this pain is unrelated to bowel movements. Associated with this abdominal pain is nausea and subsequent vomiting, which he feels is due to pain but also due to increased anxiety when he feels the pain. He also feels that during these times, he becomes more constipated, however upon further discussion he classifies his stool as a [place] type 4-5 and endorses straining. He does have a history of intermittent constipation, with previous need for laxatives as he had was going 3 to 5 days in between bowel movements. Marijuana does help with the stomach pain and nausea. He uses smokes marijuana every weekend. When these flares resolve, he does not have any residual symptoms.Family history of GERD and diabetes in his grandmother. No other family history of gastrointestinal diseases or malignancies. Patient drinks alcohol rarely. He denies tobacco use. Functional Status Date Functional Assessmen t No Information Instructions Date Instruction Additional Infor dominguez Colon Cancer Prevention Related to Lower abdominal pain, unspecified Nice to meet you tojonas santos!-- Labs today to check for celiac disease.-- I have ordered a colonoscopy and an x-ray of the abdomen and you will be contacted to schedule these. For the colonoscopy, you will need a front load trash truck driver to bring you home as you will have been sedated.-- I recommend increasing dietary fiber if possible. I also recommend trying a fiber supplement such as Citrucel, Benefiber, or Metamucil. You can call the dosing instructions on the back of the packaging. Daily fiber goal is 25 to 30 g between diet and supplementation.-- I will send some dicyclomine for abdominal pain to be used up to 3 times daily as needed.-- I will have you follow-up after the colonoscopy. Related to Lower abdominal pain High Fiber Diet Related to Irreg ular bowel habits Assessments Type Assessment Date No Information Patient Care Teams Name Effective Dates (start - stop) Status Members No Information
--- OUTSIDE RECORDS SUMMARY | 2024-09-22 08:01 | XMS_ITS | Continuity of Care Document ---
Author Organization [facility] Address [address] [address] [place] [address] Phone Care Team Providers Care Cardiovascular Radiologic Technologist Name Role Phone Scooby Buck CRNA Unavailable [...] Diagnoses Date Provider Providers Copied on Encounter [facility], [address] [address], [place], [place], [id number], [place] tel:[phone] [facility] No Information 5 Heber Almodovar. [address] [facility], [address], [place], [place], [id number] , [place]. tel: [phone] Referring Provider: Stephen Garcia MD, [address] [facility] [address], [place], [address] . tel:[phone] [facility], [address] [address], [place], [place], [address], [place] tel:[phone] [facility] GI Symptoms or Concerns (chief complaint) Lower abdominal pain, unspecifiedAbnormal findings on diagnostic imaging of other parts of digestive tractLower abdominal pain, unspecified Aug- Jose Mitchell. [address] [place] [address], [place], [id number] , [place]. tel: [phone] Referring Provider: Referral Self, USE FOR SELF REFERRALS. Offic/outpt E&m [facility], [address] [address], [place], [place], [id number], [place] tel:[phone] [facility] GI Symptoms or Concerns (chief complaint) Lower abdominal painIrregular bowel habitsNausea and vomiting, unspecified vomiting type 5 Jessika Ace. [address] [place] [address], [place], [place], [id number] , [place]. tel: [phone] Referring Provider: Nayana Baer, [address] [place], [address]. tel:[phone] [facility], [address] [address], [place], [place], [address], [place] tel:[phone] [facility] No Information 5 Rigo Sol. [facility] [address], [place], [place], [id number] , [place]. tel: [phone] [facility], [address] [address], [place], [place], [address], [place] tel:[phone] [facility] No Information 1 Gregory Alex. [address] [facility], [facility] [address], [place], [place], [id number] , [place]. tel:[phone] Family History Family Member Type Diagnosis Age [...] ional interface ; Source: Other Registry Novel [id number], all formulations administered Note: [facility] bi-direct ional interface ; Source: Other Registry Novel [id number], all formulations administered Note: [facility] bi-direct ional [...] Registry Payers Payer name Insurance type Covered democrat ID Marizol becker(s) [facility] [id number] Social History Type Description Quantity Date Captured [...] note on 08/20, patient was seen at [place] emergency room 08/01 and 08/03 for possible [...] resolve. He did visit the ED in [place] earlier this month for the symptoms, and [...] discussion he classifies his stool as a [place] type 4-5 and endorses straining. He does [...] For the colonoscopy, you will need a diesel truck driver to bring you home as [...]
[2024-12-17] VITALS (11 sets, daily range): BP systolic 144–160; BP diastolic 85–105; PULSE 83–125; RESP 20; TEMP 36.4; O2SAT 92–99
--- OUTSIDE RECORDS SUMMARY | 2024-12-17 17:09 | XMS_ITS | Clinical Summary ---
Author Organization [facility] Address [address] [place] [address] Care Team Providers Care Sales Planning Coordinator Name Role Phone Needs Pcp, Assignment Primary Care Provider Source Comments You are receiving this document as you are listed as the primary care provider,follow-up provider, or the patient has been referred to you for consultation.This is in compliance with the Medicare and[facility] EHR Incentive Program,which states Providers who transition their patient to another setting of careor provider of care or refers their patient to another provider of care shouldprovide summary care record for each transition of care or referral. [facility] Allergies Active Allergy Reactions Criticality Noted Date [...] 06/06/2005, 1,03/11/2001,2000 Influenza IIV4 (Quadrivalent ) 0.5mL (51992) 04/08/2016 Influenza LAIV (Nasal, 2-49 yrs) 04/13/2015 [...] (195 lb 6.4 oz) 09/01/2018 12:58 PM LOCOMOTIVE CRANE ENGINEER Height 179.1 cm (5' 10.5) 09/01/2018 12:[address] Body Mass Index 27.64 09/01/2018 12:58 PM LOCOMOTIVE CRANE ENGINEER Plan of Treatment Health Maintenance Due Date [...] Insurance CARE PMAP CARE PMAP Care Teams Sales Planning Coordinator Relationship Specialty Start Date End Date Needs Pcp, [place] [address] PCP - General 03/21/22
--- OUTSIDE RECORDS SUMMARY | 2024-12-17 17:09 | XMS_ITS | Clinical Summary ---
Author Organization [facility] Address [address] [place] [address] Care Team Providers Care Access Specialist Name Role Phone [facility], [facility] Primary Care Provider Allergies Active Allergy Reactions [...] on file Legal Sex Male 9:37 PM MANUFACTURING SUPERVISOR 2ND SHIFT Gender Identity Not on file Sexual Orientation Not on file Obstetrics History Last Filed Vital Signs Vital Sign Reading Time Taken Comments Blood Pressure 130/76 08/20/2024 11:07 AM MANUFACTURING SUPERVISOR 2ND SHIFT Pulse 77 08/20/2024 11:07 AM MANUFACTURING SUPERVISOR 2ND SHIFT Temperature 36.7 C (98.1 F) 04/24/2017 12:01 PM CDT Respiratory Rate 18 04/24/2017 12:01 PM CDT Oxygen Saturation 97% 08/20/2024 11:07 AM MANUFACTURING SUPERVISOR 2ND SHIFT Inhaled Oxygen Concentration - - Weight 86.6 kg (191 lb) 08/20/2024 11:07 AM MANUFACTURING SUPERVISOR 2ND SHIFT Height 180 cm (5' 10.87) 08/20/2024 11:07 AM CS T Body Mass Index 26.74 08/20/2024 11:07 AM MANUFACTURING SUPERVISOR 2ND SHIFT Plan of Treatment Health Maintenance Due Date [...] ANTI HIV 1/2 Routine 08/20/2024 11:36 AM MANUFACTURING SUPERVISOR 2ND SHIFT Screening for HIV (human immunodeficiency virus) ANTI HCV Routine 08/20/2024 11:36 AM MANUFACTURING SUPERVISOR 2ND SHIFT Need for hepatitis C screening test from Last 3 Months or Most Recently Relevant to Health Maintenance Results * SCAN-COLONOSCOPY (09/22/2024 1:00 PM CDT) Narrative Procedure Note Jose, Stephen Anders MD - 09/22/2024 12:08 PM CDT [facility] [address] [facility] [address], [address], [place] [address] Patient Name: Austin Goodman Gender: Male Exam Date: 09/22/2024 Visit Number: [id number] Age: 23 Years Date of : 2000 Attending MD: Stephen Garcia MD Medical Record#: [id number] Procedure: Colonoscopy Indications: Abnormal imaging Abdominal pain [...] signed by: Finesse Wong MD Interpreted at [facility], [address] [place] [id number] Orders Instruction(s)/Education: Instruction/Education Timeframe Assessment Colon Cancer [...] sult * ANTI HCV (08/20/2024 11:36 AM MANUFACTURING SUPERVISOR 2ND SHIFT) HEPATITIS C ANTIBODY NON-REACTI VE NON-REACT MARIA ELENA [facility] Comment: HCV antibody was non-reactive. There is no laboratory evidence of HCV infection. In most cases, no further action is required. However, if recent HCV exposure is suspected, a test for HCV RNA (test code 26101) is suggested. For additional information please refer to http://WhiteSmoke.Pictrition App/faq/CZH79h2 (This link is being provided for informational/ educational purposes only.) Blood BLOOD SPECIMEN / Unknown 08/20/2024 11:36 AM MANUFACTURING SUPERVISOR 2ND SHIFT 08/20/2024 11:37 AM MANUFACTURING SUPERVISOR 2ND SHIFT Nayana [place] SEND OUTS Final Result [email or web address] [facility] [address] [place] [address], [facility] [address] [place] [address] * ANTI HIV 1/2 [33528.0] (08/20/2024 11:36 AM MANUFACTURING SUPERVISOR 2ND SHIFT) Pathologist [facility] [place] HIV AG/AB, 4TH GEN NON-REACT MARIA ELENA NON-REACT MARIA ELENA [facility] Comment: HIV-1 antigen and HIV-1/HIV-2 antibodies were [...] purpose. For additional information please refer to http://education.Pictrition App/faq/YKG731 (This link is being provided for informational/ educational purposes only.) The performance of this assay has not been clinically validated in patients less than 2 years old. Blood BLOOD SPECIMEN / Unknown 08/20/2024 11:36 AM MANUFACTURING SUPERVISOR 2ND SHIFT 08/20/2024 11:37 AM MANUFACTURING SUPERVISOR 2ND SHIFT Nayana MCFARLAND SEND OUTS Final Result [email or web address] [facility] [address] [place] [address], [facility] [address] [place] [address] from Last 3 Months or Most Recently Relevant to Health Maintenance Insurance [id number] [id number] [facility] Care Teams Access Specialist Relationship Specialty Start Date End Date Clinic, [facility] [id number] [place] [address] PCP - General 10/30/16
--- OUTSIDE RECORDS SUMMARY | 2024-12-17 17:09 | XMS_ITS | Encounter Summary ---
Author Organization [facility] Address [address] [place] [address] Care Team Providers Care Sheet Turner Name Role Phone Needs Pcp, Assignment Primary [...] on filedocumented in this encounter Care Teams Sheet Turner Relationship Specialty Start Date End Date Needs Pcp, [place] [address] PCP - General 03/21/22 documented as of this encounter
--- OUTSIDE RECORDS SUMMARY | 2024-12-17 17:09 | XMS_ITS | Encounter Summary ---
Author Organization [facility] Address [address], [place] [address] Care Team Providers Care Senior Linux Administrator Name Role Phone Needs Pcp, Assignment Primary [...] on filedocumented in this encounter Care Teams Senior Linux Administrator Relationship Specialty Start Date End Date Needs Pcp, [place] [address] PCP - General 03/21/22 documented as of this encounter
--- OUTSIDE RECORDS SUMMARY | 2024-12-17 17:09 | XMS_ITS | Encounter Summary ---
Author Organization [facility] Address [address] [address] Care Team Providers Care Helmet Hat Puncher Name Role Phone Needs Pcp, Assignment Primary Care Provider [phone] Encounter Details Date Type Department Care Team [...] on filedocumented in this encounter Care Teams Helmet Hat Puncher Relationship Specialty Start Date End Date Needs Pcp, [place] [address] PCP - General 03/21/22 documented as of this encounter
--- OUTSIDE RECORDS SUMMARY | 2024-12-17 17:09 | XMS_ITS | Encounter Summary ---
Author [facility] Address [address] [place] [address] Care Team Providers Care Final Cleaner Name Role Phone Needs Pcp, Assignment Primary Care Provider Encounter Details Date Type Department Care Team (Late st Contact Info) Description 2000 Office Visit [facility] [address] [place] [address] Andres Jaquez MD [address] [place] [address]184 Social History Tobacco Use Types Packs/Day Years [...] on filedocumented in this encounter Care Teams Final Cleaner Relationship Specialty Start Date End Date Needs Pcp, [place] [address] PCP - General 03/21/22 documented as of this encounter
--- OUTSIDE RECORDS SUMMARY | 2024-12-17 17:09 | XMS_ITS | Encounter Summary ---
Author Organization [facility] Address [address] [place] [address] Care Team Providers Care Tailing Hand Name Role Phone Needs Pcp, Assignment Primary Care Provider [phone] Encounter Details Date Type Department Care Team (Late st Contact Info) Description 04/10/2019 Outside Hospital External to [facility], [facility] HISTORY AND PHYSICAL Social [...] on filedocumented in this encounter Care Teams Tailing Hand Relationship Specialty Start Date [place] [address] PCP - General 03/21/22 documented as of this encounter
--- OUTSIDE RECORDS SUMMARY | 2024-12-17 17:09 | XMS_ITS | Clinical Summary ---
Author Organization [facility] Address [address] [place] [address] Care Team Providers Care Product Developer Name Role Phone Jose Fragoso MD Primary Care Provider [phone] Allergies Active Allergy Reactions Criticality Noted Date [...] on file Legal Sex Male 4:18 AM ER MANAGER Gender Identity Not on file Sexual Orientation [...] to complete this topic Insurance [id number] [place] [id number] [facility] none (Work) [id number] Advance Directives For more information, please contact: [phone] * Full Code (Latest Code Status on File) Date Activated Date Inactivated Comments 04/10/2019 2:53 PM 04/11/2019 7:15 PM Question Answer Comments Code status determined by: Discussion with savannah nt/legal decision maker Care Teams Product Developer Relationship Specialty Start Date End Date Jose Fragoso MD [facility] [address] [place] [address] PCP - General Family Medicine 08/26/20
--- OUTSIDE RECORDS SUMMARY | 2024-12-17 17:09 | XMS_ITS | Encounter Summary ---
Author Organization [facility] Address [address] [place] [address] Care Team Providers Care Process Validation Engineer Name Role Phone Needs Pcp, Assignment Primary Care Provider [phone] Encounter Details Date Type Department Care Team (Late st Contact Info) Description 01/01/2001 Office Visit [facility] [address] [place], [place] [phone] Bc Lassiter MD [facility] [address] [place], [place] [phone] Social History Tobacco Use Types Packs/Day Years [...] on filedocumented in this encounter Care Teams Process Validation Engineer Relationship Specialty Start Date End Date Needs Pcp, [place] [address] PCP - General 03/21/22 documented as of this encounter
--- NOTE | 2024-12-17 18:48 | ED.GENADULT ---
HPI - General Adult General Chief complaint: Nausea/Vomiting Stated complaint: Nausea, vomiting blood Time Seen by Provider: 12/17/24 18:32 History of Present Illness HPI narrative: Pt was seen on Friday for N/V and was sent home with meds. Was doing ok for a few days but symptoms returned today around 1600. He states he has ABD pain and is vomiting blood . He is shaking in triage. Not eaten much solid food in 1 week . Has been taking in fluids. Having bowel movements . No blood noted. 24-year-old young man presenting to depart with concern of vomiting and abdominal pain. Has not experienced fever. Seen 4 days ago in this department with similar complaint. 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 Had some blood in the vomitus. Does not describe puddling of blood. He has 2 weeks into a new job and has already missed a number of days. This is worrying. He later says that ?I love my job?. Accompanied here by significant other. It has been few years since had an endoscopy with unremarkable findings. Did have a colonoscopy more recently apparently otherwise unremarkable marker below. He references a trip to [place] where had combination of vomiting and diarrhea there. Evidently had mild findings of colitis at that time. Returned to late June or early July? He does have a longstanding history of recurrent vomiting diarrhea IBS symptoms alternating with constipation since high school with otherwise unremarkable workups. Does also have a relationship with [facility]. Does use marijuana. They believe that dicyclomine was helpful at last visit. Does not sound that he is taking regular H2 shelby or PPI. Related Data Home Medications ?Medication ?Instructions ?Recorded ?Confirmed clonidine HCl 0.2 mg tablet 0.2 mg PO QPM 12/28/23 12/13/24 Held on 12/13/24. Instructions: insurance reason venlafaxine 37.5 mg 37.5 mg PO DAILY 12/28/23 12/13/24 capsule,extended release 24 hr alprazolam 1 mg tablet mg PO 12/13/24 Previous Rx's ?Medication ?Instructions ?Recorded omeprazole 20 mg capsule,delayed 20 mg PO QDAY #90 caps 01/27/22 release lorazepam 0.5 mg tablet 0.5 mg PO TID PRN anxiety #30 tabs 05/31/22 Held on 12/13/24. Instructions: insurance reason propranolol 60 mg capsule,24 60 mg PO QHS #30 caps 05/31/22 hr,extended release lorazepam 1 mg tablet 1 mg PO TID PRN #14 tabs 12/28/23 ondansetron HCl 4 mg tablet 4 mg PO Q8H #14 tabs 12/28/23 dicyclomine 20 mg tablet 20 mg PO QID PRN abdominal pain 12/13/24 #20 tabs ondansetron 4 mg disintegrating 4 mg PO Q6H PRN nausea and 12/13/24 tablet vomiting #20 tabs promethazine 25 mg rectal 25 mg SD Q6H PRN #12 ea 12/13/24 suppository famotidine 40 mg tablet 40 mg PO DAILY #30 tabs 12/17/24 Allergies Allergy/AdvReac Type Severity Reaction Status Date / Time polymyxin B AdvReac Mild Verified 12/28/23 09:31 Review of Systems Status of ROS: Reports: 6 or more systems reviewed and unremarkable except as noted in History and below [facility] Medical History Anxiety ?F41.9 - Anxiety disorder, unspecified (ICD-10) Social History Smoking Status: Never smoker Do you use any of these nicotine containing products: None How often do you have a drink containing alcohol: monthly or less AUDIT-C Alcohol total score: 1 Non-prescribed substance use: marijuana (any form) Exam Narrative: Exam Narrative: Pleasant. Tremulous. Appears anxious. Heart in elevated rate and regular rhythm. Lungs are clear. Extremities are well perfused without edema. Abdomen generally diffusely mildly tender left greater than right. No peritoneal signs. Const: Vital Signs, click to edit/add: Vital Signs - 24 hr 12/17/24 17:13 Temperature 97.6 F Pulse Rate [Pulse Oximeter] 120 H Respiratory Rate 20 Blood Pressure [Ri ght Upper Arm] 144/85 H Pulse Oximetry 95 Oxygen Delivery Me thod Room Air Documenting provider has reviewed patient's vital signs: yes Course Vital Signs Vital signs: Initial Vital Signs Temperature 97.6 F 12/17/24 17:13 Temperature Source Temporal Artery Scan 12/17/24 17:13 Pulse Rate 120 H 12/17/24 17:13 Pulse Rhythm Regular 12/17/24 17:13 Respiratory Rate 20 12/17/24 17:13 Blood Pressure 144/85 H 12/17/24 17:13 Blood Pressure Mean 104 12/17/24 17:13 Blood Pressure Position Sitting 12/17/24 17:13 Pulse Oximetry 95 12/17/24 17:13 Oxygen Delivery Method Room Air 12/17/24 17:13 Vital Signs Temperature 97.6 F 12/17/24 17:13 Pulse Rate 120 H 12/17/24 17:13 Respiratory Rate 20 12/17/24 17:13 Blood Pressure 144/85 H 12/17/24 17:13 Pulse Oximetry 95 12/17/24 17:13 Oxygen Delivery Method Room Air 12/17/24 17:13 Temperature 97.6 F 12/17/24 17:13 Pulse Rate 120 H 12/17/24 21:15 Respiratory Rate 20 12/17/24 19:42 Blood Pressure 150/96 H 12/17/24 20:17 Pulse Oximetry 97 12/17/24 21:15 Oxygen Delivery Method Room Air 12/17/24 17:13 Medications Administered Medications: Discontinued Medications Generic Name Dose Route Start Last Admin Trade Name Freq PRN Reason Stop Dose Admin Diazepam 5 mg 12/17/24 19:37 12/17/24 19:39 Diazepam 5 Mg/Ml Inj IV 12/17/24 19:38 5 mg ONCE ONE Administration Diphenhydramine HCl 25 mg 12/17/24 19:37 12/17/24 19:48 Diphenhydramine 50 Mg/Ml Inj IVP 12/17/24 19:38 25 mg ONCE ONE Administration Droperidol 2.5 mg 12/17/24 19:02 12/17/24 19:25 Droperidol 2.5 Mg/Ml Inj IV 12/17/24 19:03 2.5 mg ONCE ONE Administration Sodium Chloride 1,000 mls @ 1,000 mls/hr 12/17/24 19:02 12/17/24 21:03 0.9 % Sodium Chloride 1000 Ml IV 12/17/24 20:01 Infused .Q1H ONE Infusion Medical Decision Making MDM Narrative Medical decision making narrative: This really does appear to be a chronic matter with some sort of functional abdominal pain with IBS. Clearly exacerbated by anxiety. Will check labs looking for stability of hemoglobin and electrolytes. This bleeding possibly represents Antoinette-Wilson tears. IV hydration. Reviewing records looks like droperidol may have been helpful but did also receive diphenhydramine and Compazine at last visit. Ordered for IV fluids and singular dosing of droperidol. Shortly after received droperidol 2.5 mg became much more anxious and not feeling well. Stable cardiac monitoring. Was ordered for a dosing of IV Valium along with diphenhydramine. This appeared to help. In the future would consider pretreating with diphenhydramine ahead of droperidol. Labs with very mild elevation in white count. Labs are generally reassuring. Improved over time in the ER and was requesting departure of possible. See patient discharge plan for further discussion Focus on hydration. Slow advance of diet over the next 24 hours. Diluted juices, soup broth, toast, rice, crackers. I think it might be a good idea to begin keeping a diet diary of everything you eat and drink or other substances you might ingest and how they might correlate timing chau with these symptoms of abdominal pains and/or vomiting or diarrhea. This diarrhea or journal would be helpful in follow-up in clinic. If this these symptoms seem to be flaring longer-term, I would reestablish this connection with [facility]. But at least reestablish in primary care as soon as possible. I am sending in a prescription of famotidine to the pharmacy. This is an acid canary raiser. There are other options but this is a place to start. Try to get quality and regular sleep. Stay busy. See the morning sun in other words do not sleep in too long. Try to get a little heart pumping exercise in daily. Be careful with marijuana use. THC might be exacerbating or contributing to your symptoms. Medical Records Medical records reviewed: Yes I reviewed the patient's medical records Lab Data Lab results reviewed: Yes I reviewed the patient's lab results Labs: Lab Results 12/17/24 Range/Units 19:20 WBC 11.96 H (4.50-11.00) K/uL RBC 5.82 (4.30-5.90) m/uL Hgb 16.6 (13.5-17.5) gm/dL Hct 48.9 (37.0-53.0) % MCV 84 (80-100) fL MCH 29 (26-34) pg MCHC 34 (32-36) gm/dL RDW Coeff of Liv 12.1 (11.5-15.5) % Plt Count 294 (140-440) K/uL Neut % (Auto) 84.8 H (42.0-72.0) % Lymph % (Auto) 10.1 L (20-44) % Nelson % (Auto) 4.6 (0.0-11.0) % Eos % (Auto) 0.1 (0.0-7.0) % Baso % (Auto) 0.3 (0.0-3.0) % Neut # (Auto) 10.10 H (1.7-7.0) K/uL Lymph # (Auto) 1.20 (0.90-2.90) K/uL Nelson # (Auto) 0.60 (0.00-0.90) K/UL Eos # (Auto) 0.00 (0.00-0.50) K/uL Baso # (Auto) 0.00 (0.00-0.30) K/uL Abs Immat Gran (auto) 0.00 (0.00-0.30) K/uL Imm/Tot Granulo (auto) 0.1 % Sodium 140 (135-149) mmol/L Potassium 4.6 (3.6-5.1) mmol/L Chloride 98 (96-114) mmol/L Carbon Dioxide 25 (20-32) mmol/L Anion Gap 17 H (7-15) mEq/L BUN 16 (5-24) mg/dL Creatinine 1.0 (0.5-1.5) mg/dL Estimated GFR 108 ml/min Glucose 95 (60-115) mg/dL Calcium 11.2 H (8.4-10.6) mg/dL C-Reactive Protein < 0.5 L (0.5-1.0) mg/dL Discharge Plan Discharge Clinical Impression: Functional abdominal pain syndrome, Irritable bowel syndrome, Vomiting Patient Disposition: Home w/ Parent or Adult Condition: Improved Additional Instructions: Focus on hydration. Slow advance of diet over the next 24 hours. Diluted juices, soup broth, toast, rice, crackers. I think it might be a good idea to begin keeping a diet diary of everything you eat and drink or other substances you might ingest and how they might correlate timing chau with these symptoms of abdominal pains and/or vomiting or diarrhea. This diarrhea or journal would be helpful in follow-up in clinic. If this these symptoms seem to be flaring longer-term, I would reestablish this connection with [facility]. But at least reestablish in primary care as soon as possible. I am sending in a prescription of famotidine to the pharmacy. This is an acid canary raiser. There are other options but this is a place to start. Try to get quality and regular sleep. Stay busy. See the morning sun in other words do not sleep in too long. Try to get a little heart pumping exercise in daily. Be careful with marijuana use. THC might be exacerbating or contributing to your symptoms. Prescriptions: New famotidine 40 mg tablet 40 mg PO DAILY Qty: 30 0RF No Action propranolol 60 mg capsule,extended release 24 hr 60 mg PO QHS Qty: 30 2RF lorazepam 0.5 mg tablet 0.5 mg PO TID PRN (Reason: anxiety) Qty: 30 1RF venlafaxine 37.5 mg capsule,extended release 24hr 37.5 mg PO DAILY clonidine HCl 0.2 mg tablet 0.2 mg PO QPM lorazepam 1 mg tablet 1 mg PO TID PRNQty: 14 0RF ondansetron HCl 4 mg tablet 4 mg PO Q8H Qty: 14 0RF alprazolam 1 mg tablet PO promethazine 25 mg suppository 25 mg SD Q6H PRNQty: 12 0RF dicyclomine 20 mg tablet 20 mg PO QID PRN (Reason: abdominal pain) Qty: 20 0RF ondansetron 4 mg tablet,disintegrating 4 mg PO Q6H PRN (Reason: nausea and vomiting) Qty: 20 0RF omeprazole 20 mg capsule,delayed release(DR/EC) 20 mg PO QDAY Qty: 90 0RF Follow Up/Referrals: Jose Fragoso MD [Primary Care Provider, Family Practice] Stand Alone Forms: [employer] Info Instructions
[2024-12-17 19:25] LABS: Basophils Percent Auto 0.3 % (0.0-3.0); Eosinophils Percent Auto 0.1 % (0.0-7.0); Hematocrit 48.9 % (37.0-53.0); Hemoglobin* 16.6 gm/dL (13.5-17.5); Immature Granulocytes Pct Auto 0.1 %; Lymphocytes Percent Auto 10.1 % (20-44); Mean Corpuscular HGB Conc 34 gm/dL (32-36); Mean Corpuscular Hemoglobin 29 pg (26-34); Mean Corpuscular Volume 84 fL (80-100); Monocytes Percent Auto 4.6 % (0.0-11.0); Neutrophils Percent Auto 84.8 % (42.0-72.0); Platelet Count* 294 K/uL (140-440); RDW Coefficient of Variation % 12.1 % (11.5-15.5); Red Blood Count 5.82 m/uL (4.30-5.90); White Blood Count* 11.96 K/uL (4.50-11.00)
[2024-12-17] MEDS: droperidoL 2.5 MG/ML inj IV (19:25)
[2024-12-17] MEDS: 0.9 % SODIUM CHLORIDE 1000 ml 1,000 ML IV (19:26)
[2024-12-17 19:38] LABS: Chloride* 98 mmol/L (96-114); Potassium* 4.6 mmol/L (3.6-5.1); Slide Review Reflex No; Sodium* 140 mmol/L (135-149)
[2024-12-17] MEDS: diazePAM 5 MG/ML inj IV (19:39)
[2024-12-17 19:42] LABS: Anion Gap 17 mEq/L (7-15); Blood Urea Nitrogen* 16 mg/dL (5-24); Calcium* 11.2 mg/dL (8.4-10.6); Carbon Dioxide* 25 mmol/L (20-32); Estimated Glomerular Filt Rate 108 ml/min; Glucose* 95 mg/dL (60-115)
[2024-12-17 19:45] LABS: C Reactive Protein* < 0.5 mg/dL (0.5-1.0)
[2024-12-17] MEDS: diphenhydrAMINE 50 MG/ML inj 25 MG IVP (19:48)
== END 2024-12-17 21:35 | disposition home or self-care (01) ==
PROVIDERS: Emergency Provider Family Medicine; PCP Family Medicine
DX: K58.9 Irritable bowel syndrome, unspecified (principal); R11.10 Vomiting, unspecified
CPT/HCPCS: 36415; 80048; 85025; 86140; 94761; 96361; 96374; 96375; 99284; J1200; J1790; J3360; J7030